=== PATIENT | male | born 1960 ===

== ENCOUNTER 2018-01-06 11:28 | Outpatient (CLI) | payer OTHER | END 2018-01-06 11:29 | disposition home or self-care (01) | LOC: SC 11:28 | PROVIDERS: ATTEND Internal Medicine Pulmonary Disease | DX: G47.33 Obstructive sleep apnea (adult) (pediatric) (principal); I48.91 Unspecified atrial fibrillation | CPT/HCPCS: 99203; 99212 ==

== ENCOUNTER 2018-04-21 10:57 | Outpatient (CLI) | payer OTHER | END 2018-04-21 10:58 | disposition home or self-care (01) | LOC: SC 10:57 | PROVIDERS: ATTEND Nurse Practitioner Family | DX: G47.33 Obstructive sleep apnea (adult) (pediatric) (principal) | CPT/HCPCS: 99212; 99214 ==

== ENCOUNTER 2019-04-21 14:36 | Outpatient (CLI) | payer OTHER ==
[2019-04-21 15:50] VITALS: BP 102/66
--- NOTE | 2019-04-21 15:50 | SLEEP CARE CONSULTATION ---
Information from patient questionnaire entered by Liliana Patterson. I have reviewed and concur with the information entered by Liliana Patterson. This document represents the service I personally performed and the decisions made by me, Yelena Medrano, RN, MSN, [employer]. History of Present Illness Previous diagnosis: Moderate, Obstructive Sleep Apnea-Hypopnea Syndrome, Other (RDI of 25.5) Reason for CPAP/BiPAP follow up: annual Equipment type: CPAP Equipment obtained from: [employer] Mask style: Full face Mask brand: Resmed Backup mask available: Yes (? he is to keep current mask when replaced as a spare) Last cushion change: 5 - 6 weeks ago Prior sleep studies: Yes Year and Where: 2006 Sleep Disordered Breathing Lab, 2013 [facility] CPAP Compliance Data - Data Reviewed with Patient Average duration of nightly device use: 6h 52m Compliance rate %: 98 Current pressure setting (cmH2O): 11.8-14 Humidity settin Heated hose setting: none Average residual AHI: 4.4 Average large leak: 1.3liters per minute Subjective Patient concerns: reports: dry mouth, nose, throat (rare with cold ). denies: aerophagia, mask discomfort, air blowing in eyes, mask leak noise, condensation in mask/hose Observed to snore while using device: Yes (occcasion) Current pressure setting perceived as: comfortable On therapy, patient: reports: sleeping better, awakening more refreshed, being more awake and alert during the day, more rested overall. denies: drowsiness while driving Initial [place] Sleepiness Scale score: 9 Current [place] Sleepiness Scale score: 8 Allergies and Home Medications Known drug allergies: No Home medication list reviewed: Yes Allergy and home medication list: Medication Name (generic/name brand) Strength & Dosage Metoprolol Succinate 25mg tab one twice daily Aspirin 81mg tab one daily Zantac 150mg tab one daily prn Flecainide 50mg twice daily ? Review of Systems Review of systems same as previous: Yes Physical Exam Blood Pressure: 102/66 Cuff size: long Heart Rate: 57 O2 Saturation: 96 Height: 6 ft Weight: 235 lb 3.2 oz Body Mass Index: 31.8 BMI Classification: Obesity Class 1 Impression and Plan 1. Obstructive Sleep Apnea-Hypopnea Syndrome, moderate, with good treatment compliance and good apnea control. On CPAP therapy, the patient has better sleep quality and is more rested overall. Since his pressure is at [id number] for unknown reason and there is variable higher apnea noted intermittently on compliance, I will change his pressure back to [id number] as ordered. Patient is advised to contact ze if pressure change uncomfortable. To reduce mask leaks when he sleeps on his side , I showed him a CPAP pillow sample. This or other style can be bought online for about $60. His weight currently shows class one obesity. He has started to lose weight. He is unsure of healthy goal so we reviewed and discussed the BMI chart. The goal is to not be obese to reduce apne a risk and overall health risks. He is currently increasing exercise and modifying diet. He was informed how significant weight loss will reduce pressure requirements and symptoms to report. Patient's apnea severity and rationale for treatment to reduce apnea, improve sleep quality and reduce cardiovascular and cerebrovascular events was reviewed. I also reviewed the benefit of consistent device use of CPAP for arrhythmia, gastric reflux. mod * * Change CPAP pressure to 15-16 cmH2O * Consider CPAP pillow. * Notify me if snoring with mask or feeling that the pressure is too much or too little * Continue to lose weight * Return for follow up in 1 year , or sooner if concerns arise I spent 100% of this 30 minute visit face to face with the patient with greater than 50% of this was spent time counseling the patient and coordination of care.
== END 2019-04-21 14:37 | disposition home or self-care (01) ==
LOC: SC 14:36
PROVIDERS: ATTEND Nurse Practitioner Family
DX: G47.33 Obstructive sleep apnea (adult) (pediatric) (principal); E66.9 Obesity, unspecified; Z68.31 Body mass index [BMI] 31.0-31.9, adult
CPT/HCPCS: 99212; 99214

== ENCOUNTER 2020-05-23 08:21 | Outpatient (CLI) | payer OTHER ==
--- NOTE | 2020-05-23 09:30 | SLEEP CARE CONSULTATION ---
Information from patient questionnaire entered by Jeana Shipley. I have reviewed and concur with the information entered by Jeana Shpiley. This document represents the service I personally performed and the decisions made by , Lorelei Leblanc ARNP. History of Present Illness Service Date and Time: 05/23/2020820 Previous diagnosis: Moderate, Obstructive Sleep Apnea-Hypopnea Syndrome, Other (RDI of 25.5) AHI: 25.5 (in 2006) Reason for follow up: annual (last seen 2018) Equipment type: CPAP Equipment obtained from: [employer] (getting supplies as needed) Mask style: Full face Backup mask available: Yes (old mask) Last cushion change: 2 days ago Prior sleep studies: Yes Year and Where: 2006 - Sleep Disordered Breathing Lab, 2013 - [facility] HPI additional information: FATOU COMBS was diagnosed to have moderate, AHI 25.5, obstructive sleep apnea- hypopnea syndrome and returned today for CPAP therapy annual follow-up. CPAP Compliance Data - Data Reviewed with Patient Average duration of nightly device use: 6.9 Compliance rate %: 97 (180 days) Current pressure setting (cmH2O): 12-14.6 Humidity settin Average residual AHI: 6.2 Central apnea: 3.6 Obstructive apnea: 0.3 Subjective Patient concerns: reports: aerophagia (a little bit, not too bad), mask discomfort (occasionally vaughn on face, tighten too much), nasal congestion (has some allergies, takes medication). denies: air blowing in eyes, mask leak noise, condensation in mask/hose, dry mouth, nose, throat, epistaxis, other Observed to snore while using device: Yes (a little bit when on his back) Current pressure setting perceived as: comfortable On therapy, patient: reports: sleeping better, awakening more refreshed, being more awake and alert during the day, more rested overall. denies: drowsiness while driving Initial [place] Sleepiness Scale score: 9 (in 2018) Current [place] Sleepiness Scale score: 11 Allergies and Home Medications Drug allergies reviewed: Yes (NKDA) Home medication list reviewed: Yes (Flecanide, omeprazole, metropolol, Eliquis) Review of Systems Review of systems same as previous: No (Afib ablation on 05/31/20) Immunologic: reports: allergies to food or environment (grass (slight)) Physical Exam Heart Rate: 76 O2 Saturation: 98 Height: 6 ft Weight: 238 lb Body Mass Index: 32.3 BMI Classification: Obese Impression and Plan 1. Obstructive Sleep Apnea-Hypopnea Syndrome, moderate, with good treatment compliance and fair apnea control with elevated AHI 6.5. On CPAP therapy, the patient has better sleep quality and is more rested overall. He has been having a little aerophagia and nasal congestion with use of his CPAP. He does have environmental allergies for which he takes medication daily as needed. He will use a nasal cleanser to try to combat the nasal congestion. I advised him that nasal congestion can be reduced with increasing the CPAP humidity as shown on sample device. The heated hose can be adjusted higher if condensation with higher humidity setting. Saline nasal spray sample was also given to use prior to CPAP to clear nasal secretions and wash off any nasal allergens to facilitate nasal breathing. In addition, a steamy shower before bed will often assist nasal drainage. His residual AHI is 6.5 with an average central apnea 3.6 and obstructive 0.3. He is having a little aerophagia. I will adjust his pressures to try to reduce aerophagia, as well as central apnea and average residual AHI to 10-13 cm H2O. He will have to follow up in 1-2 months for reevaluation of his residual AHI. He voiced understanding and agreement with plan. Patient's apnea severity and rationale for treatment to reduce apnea, improve sleep quality and reduce cardiovascular and cerebrovascular events was reviewed. I also reviewed the benefit of consistent device use of CPAP for his arrhythmia and gastric reflux. * Change autoCPAP pressure to 10-13 cmH2O * Notify me if snoring with mask or feeling that the pressure is too much or too little * Attempt to lose weight * Call this office if any problems using CPAP * Return for follow up in 1-2 months, or sooner if concerns arise Counseling Topics: Sleeping position, Spare mask, Weight loss health impact Visit Type: In Office Time Spent with Patient (minutes): 24 Provider Statement: I spent 100% of the Face to Face Visit with the patient with greater than 50% spent counseling the patient and coordination of care.
== END 2020-05-23 08:22 | disposition home or self-care (01) ==
LOC: SC 08:21
PROVIDERS: ATTEND Nurse Practitioner Family
DX: G47.33 Obstructive sleep apnea (adult) (pediatric) (principal); E66.9 Obesity, unspecified; Z68.32 Body mass index [BMI] 32.0-32.9, adult
CPT/HCPCS: 99212

== ENCOUNTER 2020-07-19 15:18 | Outpatient (CLI) | payer OTHER ==
--- NOTE | 2020-07-19 15:59 | SLEEP CARE CONSULTATION ---
Information from patient questionnaire entered by Jeana Shipley. I have reviewed and concur with the information entered by Jeana Shipley. This document represents the service I personally performed and the decisions made by , Lorelei Leblanc ARNP. History of Present Illness Service Date and Time: 07/19/2020 1518 Previous diagnosis: Moderate, Obstructive Sleep Apnea-Hypopnea Syndrome, Other (RDI - 25.5) AHI: 25.5 (in 2013) Equipment type: CPAP Equipment obtained from: [employer] (getting supplies as needed) Mask style: Full face Backup mask available: Yes (spare mask) Last cushion change: 3 weeks Prior sleep studies: Yes Year and Where: 2006 - Sleep Disordered Breathing Lab, 2013 - [facility] HPI additional information: FATOU COMBS was diagnosed to have moderate, AHI 25.5, obstructive sleep apnea- hypopnea syndrome and returned today for CPAP therapy two month pressure change follow-up. CPAP Compliance Data - Data Reviewed with Patient Average duration of nightly device use: 6 hr 4 min Compliance rate %: 95 Current pressure setting (cmH2O): 10-13 Humidity settin Average residual AHI: 7.1 Subjective Patient concerns: reports: nasal congestion, dry mouth, nose, throat Current pressure setting perceived as: comfortable Initial [place] Sleepiness Scale score: 9 (in 2018) Current [place] Sleepiness Scale score: 7 Allergies and Home Medications Drug allergies reviewed: Yes (NKDA) Home medication list reviewed: Yes (no changes) Review of Systems Review of systems same as previous: No (cryoablation for Afib) Physical Exam Heart Rate: 71 O2 Saturation: 93 Height: 6 ft Weight: 236 lb Body Mass Index: 32.0 BMI Classification: Obese Impression and Plan 1. Obstructive Sleep Apnea-Hypopnea Syndrome, moderate, with good treatment compliance and fair apnea control with elevated AHI. On CPAP therapy, the patient has better sleep quality and is more rested overall. He seemed to be doing better at the higher pressures. The patients pressure will be changed to auto CPAP 12-15 cmH20 For elevation of residual AHI. Patient advised to contact me if pressure change is uncomfortable so that it can be adjusted. Goals for apnea control discussed. Patient asking about the Inspire implant for BUFFY and would like to discuss this in the future. Patient's apnea severity and rationale for treatment to reduce apnea, improve sleep quality and reduce cardiovascular and cerebrovascular events was reviewed. I also reviewed the benefit of con sistent device use of CPAP for arrhythmia and gastric reflux. * Change auto CPAP pressure to 12-15 cmH2O * Notify me if snoring with mask or feeling that the pressure is too much or too little * Attempt to lose weight * Call this office if any problems using CPAP * Return for follow up in 1-2 months, or sooner if concerns arise Counseling Topics: Spare mask, Weight loss health impact Visit Type: In Office Time Spent with Patient (minutes): 17 Provider Statement: I spent 100% of the Face to Face Visit with the patient with greater than 50% spent counseling the patient and coordination of care.
== END 2020-07-19 15:19 | disposition home or self-care (01) ==
LOC: SC 15:18
PROVIDERS: ATTEND Nurse Practitioner Family
DX: G47.33 Obstructive sleep apnea (adult) (pediatric) (principal); E66.9 Obesity, unspecified; Z68.32 Body mass index [BMI] 32.0-32.9, adult
CPT/HCPCS: 99212; 99213

== ENCOUNTER 2020-09-05 15:15 | Outpatient (CLI) | payer OTHER ==
--- NOTE | 2020-09-05 15:44 | SLEEP CARE CONSULTATION ---
Information from patient questionnaire entered by Madison Tavarez. I have reviewed and concur with the information entered by Madison Tavarez. This document represents the service I personally performed and the decisions made by me, Lorelei Leblanc ARNP. History of Present Illness Service Date and Time: 09/05/2020 1515 Previous diagnosis: Moderate, Obstructive Sleep Apnea-Hypopnea Syndrome, Other (RDI of 25.5) AHI: 25.5 Reason for follow up: other (6-week followup - pressure change) Equipment type: CPAP Equipment obtained from: [employer] (getting supplies as needed) Mask style: Full face Backup mask available: Yes (old mask) Last cushion change: 2 days ago Prior sleep studies: Yes Year and Where: 2006 - Sleep Disordered Breathing Lab, 2013 - [facility] HPI additional information: FATOU COMBS was diagnosed to have moderate, AHI 25.5, obstructive sleep apnea- hypopnea syndrome and returned today for CPAP therapy 6 week pressure change follow-up. CPAP Compliance Data - Data Reviewed with Patient Average duration of nightly device use: 6 h 31 min Compliance rate %: 95 Current pressure setting (cmH2O): 12.2-15 Average residual AHI: 3.9 Subjective Patient concerns: reports: nasal congestion (using nasal saline that is breaking this up and reducing congestion). denies: aerophagia, mask discomfort, air blowing in eyes, mask leak noise, condensation in mask/hose, dry mouth, nose, throat, epistaxis, other Observed to snore while using device: No Current pressure setting perceived as: comfortable On therapy, patient: reports: sleeping better, awakening more refreshed, being more awake and alert during the day, more rested overall. denies: drowsiness while driving Initial [place] Sleepiness Scale score: 9 (in 2018) Current [place] Sleepiness Scale score: 8 Allergies and Home Medications Home medication list reviewed: Yes (no changes) Review of Systems Review of systems same as previous: Yes (no changes) Physical Exam Heart Rate: 56 O2 Saturation: 91 Height: 6 ft Weight: 240 lb Body Mass Index: 32.5 BMI Classification: Obese Impression and Plan 1. Obstructive Sleep Apnea-Hypopnea Syndrome, moderate, with good treatment compliance and good apnea control. On CPAP therapy, the patient has better sleep quality and is more rested overall. He really feels that using the saline nasal spray cuts through the nasal congestion and his CPAP therapy is going better. He is no longer snoring through the mask and the pressure feels comfortable. His residual AHI has come down and he has good apnea control. He was encouraged to continue using the saline nasal spray nightly to cut the congestion since he is getting such good results. He was also asking about the Inspire implant. I discussed this briefly with him and gave him a handout with more information on the device that he may review. He voiced understanding. Patient's apnea severity and rationale for treatment to reduce apnea, improve sleep quality and reduce cardiovascular and cerebrovascular events was reviewed. I also reviewed the benefit of consistent device use of CPAP for arrhythmia and gastric reflux. * Continue auto CPAP pressure at 12.2-15 cmH2O * Notify me if snoring with mask or feeling that the pressure is too much or too little * Attempt to lose weight * Call this office if any problems using CPAP * Return for follow up in 1 year, or sooner if concerns arise Counseling Topics: Spare mask, Weight loss health impact Time Spent with Patient (minutes): 15
== END 2020-09-05 15:16 | disposition home or self-care (01) ==
LOC: SC 15:15
PROVIDERS: ATTEND Nurse Practitioner Family
DX: G47.33 Obstructive sleep apnea (adult) (pediatric) (principal); E66.9 Obesity, unspecified; Z68.32 Body mass index [BMI] 32.0-32.9, adult
CPT/HCPCS: 99212

== ENCOUNTER 2021-07-03 15:45 | Outpatient (CLI) | payer OTHER ==
[2021-07-03 16:25] VITALS: BP 110/53
--- NOTE | 2021-07-03 16:25 | SLEEP CARE CONSULTATION ---
Information from patient questionnaire entered by Zulma Clarke MA. I have reviewed and concur with the information entered by Zulma Clarke MA. This document represents the service I personally performed and the decisions made by , Lorelei Leblanc ARNP. History of Present Illness Service Date and Time: 07/03/2021 1545 Previous diagnosis: Moderate, Obstructive Sleep Apnea-Hypopnea Syndrome, Other (RDI of 25.5) AHI: 25.5 Reason for follow up: other (10 MONTH F/U TRANSFER DME) Equipment type: CPAP Equipment obtained from: [facility] (getting supplies as needed; would like to change DME) Mask style: Full face Backup mask available: Yes (old mask) Last cushion change: 3 weeks Prior sleep studies: Yes Year and Where: 2006 - Sleep Disordered Breathing Lab, 2013 - [facility] HPI additional information: FATOU COMBS was diagnosed to have moderate, AHI 25.5, obstructive sleep apnea- hypopnea syndrome and returned today for CPAP therapy 10 month, needs DME transfer follow-up. Sleep Study - Results Prior sleep studies: Yes Year and Where: 2006 - Sleep Disordered Breathing Lab, 2013 - [facility] CPAP Compliance Data - Data Reviewed with Patient Average duration of nightly device use: 6 hours 31 minutes Compliance rate %: 97 Current pressure setting (cmH2O): 12.6-15 Average residual AHI: 2.5 Central apnea: 0.6 Obstructive apnea: 0.1 Subjective Patient concerns: reports: dry mouth, nose, throat. denies: aerophagia, mask discomfort, air blowing in eyes, mask leak noise, condensation in mask/hose, nasal congestion, epistaxis, other Observed to snore while using device: No Current pressure setting perceived as: comfortable On therapy, patient: reports: sleeping better, awakening more refreshed, being more awake and alert during the day, more rested overall. denies: drowsiness while driving Initial [place] Sleepiness Scale score: 9 (in 2018) Current [place] Sleepiness Scale score: 9 Allergies and Home Medications Home medication list reviewed: Yes (no changes) Review of Systems Review of systems same as previous: Yes (no changes) Physical Exam Vital signs obtained and entered by: JIM MARIN Blood Pressure: 110/53 (left) Cuff size: wrist Heart Rate: 75 O2 Saturation: 96 (mask) Height: 6 ft Weight: 231 lb (with clothes) Body Mass Index: 31.3 BMI Classification: Obese Impression and Plan 1. Obstructive Sleep Apnea-Hypopnea Syndrome, moderate, with good treatment compliance and good apnea control. On CPAP therapy, the patient has better sleep quality and is more rested overall. Patient would like to change back to [facility] for his supplies. I will have my sports medicine coordinator inform of DME options. A DWO prescription will then be made. Patient advised to contact this office if further supply problems. Patient's apnea severity and rationale for treatment to reduce apnea, improve sleep quality and reduce cardiovascular and cerebrovascular events was reviewed. I also reviewed the benefit of consistent device use of CPAP for arrhythmia and gastric reflux. Patient was encouraged to lose weight for their overall health and to reduce apneas. Patient had many questions about the Inspire implant. I reviewed information about this therapy for sleep apnea. Patient would like to explore this option and be evaluated to see if it would work for him. I will write out a referral for this evaluation. * Continue auto CPAP pressure at 12.6-15 cmH2O * Transfer DME * Referral for evaluation for Inspire implant * Notify me if snoring with mask or feeling that the pressure is too much or too little * Attempt to lose weight * Call this office if any problems using CPAP * Return for follow up in 1 year, or sooner if concerns arise Counseling Topics: Spare mask, Weight loss health impact Visit Type: In Office Time Spent with Patient (minutes): 29 Provider Statement: I spent 100% of the Face to Face Visit with the patient with greater than 50% spent counseling the patient and coordination of care.
== END 2021-07-03 15:46 | disposition home or self-care (01) ==
LOC: SC 15:45
PROVIDERS: ATTEND Nurse Practitioner Family
DX: G47.33 Obstructive sleep apnea (adult) (pediatric) (principal); E66.9 Obesity, unspecified; Z68.31 Body mass index [BMI] 31.0-31.9, adult
CPT/HCPCS: 99212; 99213

== ENCOUNTER 2022-10-15 14:51 | Outpatient (CLI) | payer OTHER ==
[2022-10-15 15:20] VITALS: BP 120/78
--- NOTE | 2022-10-15 15:20 | SLEEP CARE CONSULTATION ---
Information from patient questionnaire entered by Mary Fernandez. I have reviewed and concur with the information entered by Mary Fernandez. This document represents the service I personally performed and the decisions made by me, Lorelei Leblanc ARNP. History of Present Illness Service Date and Time: 10/15/2022 1451 Previous diagnosis: Moderate, Obstructive Sleep Apnea-Hypopnea Syndrome, Other (RDI of 25.5) AHI: 25.5 Reason for follow up: annual (LAST SEEN 06/2021) Equipment type: CPAP (RESMED Airsense 10; s/u 04/2018) Equipment obtained from: [employer] (getting supplies as needed) Mask style: Full face (with gel) Backup mask available: No (will keep old mask when replaced) Prior sleep studies: Yes Year and Where: 2006 - Sleep Disordered Breathing Lab, 2013 - [facility] HPI additional information: FATOU COMBS was diagnosed to have moderate, AHI 25.5, obstructive sleep apnea- hypopnea syndrome and returned today for CPAP therapy annual follow-up. Sleep Study - Results Prior sleep studies: Yes Year and Where: 2006 - Sleep Disordered Breathing Lab, 2013 - [facility] CPAP Compliance Data - Data Reviewed with Patient Average duration of nightly device use: 6 HRS 36 MIN Compliance rate %: 96 (04/17/22-10/13/22; 178/180 days used) Current pressure setting (cmH2O): 12.6-15 Average residual AHI: 2.1 Central apnea: 0.6 Obstructive apnea: 0.1 Hypopnea: 1.3 Subjective Missed days of use due to: reports: other (power outage) Patient concerns: reports: mask leak noise (when mask cushion is getting old), other (headaches- not all the time). denies: aerophagia Observed to snore while using device: No (has but not recently) Current pressure setting perceived as: comfortable On therapy, patient: reports: sleeping better, awakening more refreshed, being more awake and alert during the day, more rested overall. denies: drowsiness while driving Initial [place] Sleepiness Scale score: 9 (in 2018) Current [place] Sleepiness Scale score: 7 (10/15/22) Allergies and Home Medications Known drug allergies: No Drug allergies reviewed: Yes Home medication list reviewed: Yes (no changes) Review of Systems Review of systems same as previous: Yes (no changes) Physical Exam Vital signs obtained and entered by: MARY Leone MA Blood Pressure: 120/78 (LEFT ARM) Cuff size: regular Heart Rate: 70 O2 Saturation: 96 Height: 6 ft Weight: 243 lb 3.2 oz Weight change since last visit: 12 lb gain Body Mass Index: 33.0 BMI Classification: Obese Impression and Plan 1. Obstructive Sleep Apnea-Hypopnea Syndrome, moderate, with good treatment compliance and good apnea control. On CPAP therapy, the patient has better sleep quality and is more rested overall. Patient gets occasional mask leak noise when his mask cushion needs to be changed. He has been getting more headache but it is not often first thing in morning. He needs to be able to get more supplies. I will update his supply prescription. He will be eligible for a new device in April of this year. Patient's apnea severity and rationale for treatment to reduce apnea, improve sleep quality and reduce cardiovascular and cerebrovascular events was reviewed. I also reviewed the benefit of consistent device use of CPAP for arrhythmia and gastric reflux. 2. Obesity, unspecified. Patient has gained weight. Currently patients BMI is 33.0. He goes to the gym to workout regularly but is not losing weight. He will try to look at controlling his portions to assist in losing weight. Obesity increases the risk of apnea, CPAP pressure requirements and overall health risks especially cardiovascular and diabetes. Thus patient is advised to continue to lose weight. * Continue auto CPAP pressure at 12.6-15 cmH2O * Update supplies * Notify me if snoring with mask or feeling that the pressure is too much or too little * Attempt to lose weight * Call this office if any problems using CPAP * Return for follow up in 1 year, or sooner if concerns arise Counseling Topics: Spare mask, Weight loss health impact Visit Type: In Office Time Spent with Patient (minutes): 20 Provider Statement: I spent 100% of the Face to Face Visit with the patient with greater than 50% spent counseling the patient and coordination of care.
== END 2022-10-15 14:52 | disposition home or self-care (01) ==
LOC: SC 14:51
PROVIDERS: ATTEND Nurse Practitioner Family
DX: G47.33 Obstructive sleep apnea (adult) (pediatric) (principal); E66.9 Obesity, unspecified; Z68.33 Body mass index [BMI] 33.0-33.9, adult
CPT/HCPCS: 99212; 99213